=== PATIENT | male | born 1950 | race Caucasian/White ===

== ENCOUNTER → 2020-12-21 | Outpatient (CLI) | payer MEDICARE, OTHER ==
[~2020-12-21] MED LIST: CYMBALTA 30 MG30 MG PO; ELAVIL 25 MG TA25 MG PO; ENDOCET 10-3251 EACH PO; ENOXAPARIN30 MG/0.3 SC; FAMOTIDINE20 MG PO; FLOMAX0.4 MG PO; FOLIC ACID 1 MG1 MG PO; LIPITOR TAB 1010 MG PO; LYRICA200 MG PO; MIRALAX 119 GR119 GM PO; NEURONTIN 400400 MG PO; PROSCAR5 MG PO; PROTONIX40 MG PO; SYMBICORT 80-41 INHA INH; VENTOLIN HFA 66.7 GM INH; VITAMIN B-650 MG PO; VITAMIN D35000 UNI1 PO
== END ==
LOC: KOH-I 10:47
DX: M25.551 Pain in right hip (principal); M89.8X5 Other specified disorders of bone, thigh; M21.951 Unspecified acquired deformity of right thigh
CPT/HCPCS: 73502

== ENCOUNTER 2021-01-15 13:20 | Emergency (ER) | payer MEDICARE, OTHER ==
[2021-01-15 14:15] LABS: HEMOGLOBIN 13.8 gm/dl (14.0-17.5); RED BLOOD COUNT 4.41 M/UL (4.20-5.50); WHITE BLOOD COUNT 7.9 K/UL (4.5-11.0)
== END 2021-01-15 17:12 | disposition home or self-care (01) ==
LOC: ER1 13:20
PROVIDERS: Emergency Medicine
DX: N20.0 Calculus of kidney (principal); K59.00 Constipation, unspecified; E83.42 Hypomagnesemia
CPT/HCPCS: 80053; 83605; 83735; 85025; 96365; 96367; 96372; 96375; 99284; J0696; J2212; J2270; J2405; J3475